=== PATIENT | female | born 1950 | race Caucasian/White ===

== ENCOUNTER 2020-09-23 12:57 | Emergency (ER) | payer MEDICARE, BC ==
[2020-09-23] MEDS ORDERED: Aspirin 81 MG Tab.Chew PO ONE (13:50)
--- NOTE | 2020-09-23 14:41 | PCM.EKG ---
#1 Interpretation EKG Date: 09/23/20 Time: 13:16 Rhythm: NSR Rate (Beats/Min): 66 [place]: Normal P-Wave: Present QRS: Normal ST-T: Normal QT: Normal Comparison: No Change (04/15/16) EKG Interpretation Comments: Sinus Rhythm
--- NOTE | 2020-09-23 14:49 | CR ---
INDICATION: SOB. TECHNIQUE: Upright portable AP image of the chest. COMPARISON: PA and lateral study of 04/15/2016. FINDINGS: Lungs and pleural spaces clear. Interval sternotomy. Heart size at the upper limit of normal, allowing for AP projection. Pulmonary veins normal in caliber. No significant osseous abnormality. IMPRESSION: Negative chest except for interval sternotomy. Dictated by Trevon Rodriguez MD @ 09/23/2020 2:48:[address] Trevon Rodriguez @ Sep 23 2020 2:48PM
[2020-09-23 15:11] LABS: BLOOD UREA NITROGEN,BUN 17 mg/dL (7.0-18.0); CARBON DIOXIDE,CO2 27.7 mmol/L (21.0-32.0); CHLORIDE,CL 103 mmol/L (98-107); GLUCOSE RANDOM 101 mg/dL (74-106); POTASSIUM,K 4.1 mmol/L (3.5-5.1); SODIUM,NA 139 mmol/L (136-145)
--- NOTE | 2020-09-23 16:10 | EDM.PDOC ---
ED HPI GENERAL MEDICAL PROBLEM - General Chief Complaint: Chest Pain Stated Complaint: SOB,CP AND FATIGUE Time Seen by Provider: 09/23/20 13:43 - History of Present Illness INITIAL COMMENTS - FREE TEXT/NARRATIVE: CHIEF COMPLAINT(S): Chest pain HISTORY OF PRESENT ILLNESS: This is a 70-year-old woman with a past medical history of ASD repair who comes to the emergency department with a chief complaint of chest pain. The patient states that off and on for the last 4 weeks to months she has been experiencing intermittent chest discomfort and shortness of breath. She describes it on the left side and describes it as dull and achy rated 1-2 out of 10. She currently does not have any chest pain. She denies any radiation of this pain. She states that when this chest pain happens she does not become diaphoretic, nausea or vomiting. She states that this happens during exertion and while at rest. She denies any lower extreme edema, recent travel, recent surgery or prior history of DVT or PE. She states that she does have a doctor's appointment with her senior mechanical project engineer in 2 days. She denies any cough, runny nose, earache. She states that the shortness of breath also happens intermittently not associated with exertion. She denies any fevers or chills. She denies any aggravating or relieving factors. REVIEW OF SYSTEMS: Constitutional: Denies fever, chills. Eyes: Denies eye pain Ears, Nose, Mouth, & Throat: Denies earache Cardiovascular: Positive for intermittent left-sided chest discomfort respiratory: Positive for intermittent shortness of breath. Gastrointestinal: Denies Nausea, vomiting, diarrhea, hematochezia. Genitourinary: Denies hematuria Skin:Denies a rash MSK: Denies joint pain Neurological: Denies blurred vision Psychiatric: Denies depression PAST MEDICAL HISTORY: As per history of present illness and as reviewed below otherwise noncontributory. SURGICAL HISTORY: As per history of present illness and as reviewed below otherwise noncontributory. SOCIAL HISTORY: As per history of present illness and as reviewed below otherwise noncontributory. FAMILY HISTORY: As per history of present illness and as reviewed below otherwise noncontributory. EXAMINATION OF ORGAN SYSTEMS/BODY AREAS: Constitutional: Blood pressure is 148/66, heart rate 58, respiratory rate 16 with an oxygen saturation of 95% on room air. Temperature 36.9 General: Overall well-appearing woman who is in no acute distress Psychiatric: Appropriate mood and affect. Eyes: No scleral icterus or conjunctival erythema ENMT: Moist mucous membranes. No pharyngeal erythema Cardiovascular: Regular, rate, and rhythm. No gallops, murmurs, or rubs. Bilateral upper extremity pulses symmetric and intact. No peripheral edema. No JVD. Respiratory: Lungs clear to auscultation bilaterally. No wheezes, rales, or r honchi. Gastrointestinal: Soft, non-tender, non-distended. Normoactive bowel sounds Genitourinary: No suprapubic tenderness Musculoskeletal: Normal range of motion. Skin: No lesions or abrasions. Neurological: Alert, GCS 15 MEDICAL DECISION MAKING AND COURSE IN THE ED WITH INTERPRETATION/REVIEW OF DIAGNOSTIC STUDIES: This is a 70-year-old woman with a past medical history of prior ASD repair who comes to the emergency department with intermittent chest pain and shortness of breath for the last 2 months which is atypical however given the patient's age we will undergo a cardiac work-up. EKG was obtained which did not reveal any acute signs of ischemia. Patient does have an appointment with her senior mechanical project engineer in [address] the patient on residential monitor and pulse oximetry. We will provide the patient with aspirin by mouth. Laboratory: CBC is unremarkable. BMP is unremarkable. Magnesium is normal. Troponin is negative. BNP is mildly elevated at 117. The radiological images were viewed by myself along with reading the report from the radiologist. Chest x-ray does not reveal an acute cardiopulmonary process. Heart Score History: Moderately Suspicious (1) ECG: Normal (0) Age:>65 (2) Risk Factors: No known risk factors (0) Initial Troponin: </= normal limit (0) Total Score: 3 Wells Criteria Clinical signs/symptoms of DVT: No (0) PE #1 Dx or equally likely: No (0) Heart Rate >100: No (0) Immobilization for 3 days or surgery in last month: No (0) Previously Dx PE or DVT: No (0) Hemoptysis: No (0) Malignancy w/ Tx within 6 months or palliative: No (0) Wells Score: 0 I did call and confirm that the patient does have an appointment with her senior mechanical project engineer. At this time I did discuss with patient her results. I did encourage her to keep her appointment with her senior mechanical project engineer at this time as this does ensure follow-up. She is to return for any new or worsening symptoms. She was amenable discharge at this time and had no further questions. DISPOSITION: The patient was discharged home in stable condition. The patient will follow up with her senior mechanical project engineer at her scheduled appointment in 2 days CONDITION: Fair PROCEDURES: None FINAL IMPRESSION(S)/DIAGNOSES: 1. Acute atypical chest pain 2. Acute intermittent dyspnea, unknown etiology Reese Pittman M.D. - Related Data Allergies Allergy/AdvReac Type Severity Reaction Status Date / Time No Known Allergies Allergy Verified 09/23/20 13:29 Home Meds: Home Meds Aspirin 1 tab PO DAILY 04/15/16 [History] Metoprolol Tartrate 25 mg PO BID 09/23/20 [History] Oxybutynin 5 mg PO BID 09/23/20 [History] atorvaSTATin [Lipitor] 40 mg PO BEDTIME 09/23/20 [History] Past Medical History HEENT History: Reports: None Cardiovascular History: Reports: Heart Murmur Respiratory History: Reports: None Gastrointestinal History: Reports: None Genitourinary History: Reports: None PULMONARY NURSE PRACTITIONER History: Reports: Ectopic , Neurological History: Reports: None Psychiatric History: Reports: None Hematologic History: Reports: None Immunologic History: Reports: None Oncologic (Cancer) History: Reports: None - Infectious Disease History Infectious Disease History: Reports: Chicken Pox, Measles, Mumps - Past Surgical History Head Surgeries/Procedures: Reports: None Cardiovascular Surgical History: Reports: Other (See Below) Other Cardiovascular Surgeries/Procedures: ASD surgery 2020 Musculoskeletal Surgical History: Reports: Knee Replacement, Other (See Below) Other Musculoskeletal Surgeries/Procedures:: Right hip fracture Social & Family History - Family History Family Medical History: No Pertinent Family History - Caffeine Use Caffeine Use: Reports: Coffee - Recreational Drug Use Recreational Drug Use: No ED ROS GENERAL - Review of Systems Review Of Systems: See Below ED EXAM, GENERAL - Physical Exam Exam: See Below Course - Vital Signs Last Recorded V/S: Last Vital Signs Temp 36.9 C 09/23/20 13:20 Pulse 57 L 09/23/20 16:22 Resp 17 09/23/20 16:22 BP 143/55 H 09/23/20 16:22 Pulse Ox 96 09/23/20 16:22 - Orders/Labs/Meds Labs: Laboratory Tests 09/23/20 09/23/20 09/23/20 Range/Units 13:17 13:17 13:17 WBC 7.91 (4.0-11.0) K/uL RBC 4.48 (4.30-5.90) M/uL Hgb 13.1 (12.0-16.0) g/dL Hct 39.3 (36.0-46.0) % MCV 87.7 (80.0-98.0) fL MCH 29.2 (27.0-32.0) pg MCHC 33.3 (31.0-37.0) g/dL RDW Std Deviation 46.8 (28.0-62.0) fl RDW Coeff of Mara 15 (11.0-15.0) % Plt Count 262 (150-400) K/uL MPV 9.80 (7.40-12.00) fL Neut % (Auto) 65.4 (48.0-80.0) % Lymph % (Auto) 25.2 (16.0-40.0) % [place] % (Auto) 6.6 (0.0-15.0) % Eos % (Auto) 2.3 (0.0-7.0) % Baso % (Auto) 0.5 (0.0-1.5) % Neut # (Auto) 5.2 (1.4-5.7) K/uL Lymph # (Auto) 2.0 (0.6-2.4) K/uL [place] # (Auto) 0.5 (0.0-0.8) K/uL Eos # (Auto) 0.2 (0.0-0.7) K/uL Baso # (Auto) 0.0 (0.0-0.1) K/uL Nucleated RBC % 0.0 /100WBC Nucleated RBCs # 0 K/uL Sodium 139 (136-145) mmol/L Potassium 4.1 (3.5-5.1) mmol/L Chloride 103 (98-107) mmol/L Carbon Dioxide 27.7 (21.0-32.0) mmol/L BUN 17 (7.0-18.0) mg/dL Creatinine 0.9 (0.6-1.0) mg/dL Est Cr Clr Drug Dosing 51.59 mL/min Estimated GFR (MDRD) > 60.0 ml/min Glucose 101 (74-106) mg/dL Calcium 9.6 (8.5-10.1) mg/dL Magnesium 1.9 (1.8-2.4) mg/dL Troponin I < 0.050 (0.000-0.056) ng/mL B-Natriuretic Peptide 117 H (<100) PG/ML Meds: Medications Discontinued Medications Generic Name Dose Route Start Last Admin Trade Name Coreen PRN Reason Stop Dose Admin Aspirin 324 mg 09/23/20 13:50 09/23/20 13:58 Aspirin 81 Mg Tab.Chew PO 09/23/20 13:51 Not Given ONETIME ONE Departure - Departure Time of Disposition: 16:09 Disposition: Home, Self-Care 01 Condition: Fair Clinical Impression: Anginal pain, Atypical chest pain - Discharge Information *PRESCRIPTION DRUG MONITORING PROGRAM REVIEWED*: No *COPY OF PRESCRIPTION DRUG MONITORING REPORT IN PATIENT ANATOLIY: No Instructions: Nonspecific Chest Pain, Adult, [id number], Angina, [id number] Referrals: [facility] [Primary Care Provider] - Forms: ED Department Discharge Additional Instructions: Your evaluated today on an emergent basis. At this time your work-up is negative. You are high risk for cardiac issues and I do recommend that you keep your appointment with your senior mechanical project engineer in less than 48 hours. If you have any worsening chest pain, passout or worsening shortness of breath I do recommend you return to the emergency department. [facility] [address] [place] [address] [id number] [address] [address] The patient is informed of any results of their evaluation and diagnostic workup and all questions are answered. They are given discharge instructions and return precautions. The patient is stable for discharge. The patient states they understand and agree with the plan and that they will return if their symptoms get worse or if they have any new concerns. The following information is given to patients seen in the emergency department who are being discharged to home. This information is to outline your options for follow-up care. We provide all patients seen in our emergency department with a follow-up referral. The need for follow-up, as well as the timing and circumstances, are variable depending upon the specifics of your emergency department visit. If you don't have a primary care physician on staff, we will provide you with a referral. We always advise you to contact your personal physician following an emergency department visit to inform them of the circumstance of the visit and for follow-up with them and/or the need for any referrals to a consulting specialist. The emergency department will also refer you to a specialist when appropriate. This referral assures that you have the opportunity for follow-up care with a specialist. All of these measure are taken in an effort to provide you with optimal care, which includes your follow-up. Under all circumstances we always encourage you to contact your private physician who remains a resource for coordinating your care. When calling for follow-up care, please make the office aware that this follow-up is from your recent emergency room visit. If for any reason you are refused follow-up, please contact the [facility] Emergency Department at and asked to speak to the emergency department charge nurse. Sepsis Event Note (ED) - Evaluation Sepsis Screening Result: No Definite Risk
[2020-09-23 16:22] VITALS: BP 143/55; PULSE 57
== END 2020-09-23 16:22 | disposition home or self-care (01) ==
LOC: MW.ED 12:57
DX: I20.9 Angina pectoris, unspecified (principal); R06.02 Shortness of breath; Z79.82 Long term (current) use of aspirin; Z79.899 Other long term (current) drug therapy
CPT/HCPCS: 36415; 71045; 71045-26; 80048; 83735; 83880; 84484; 85025; 93005; 99285-25